=== PATIENT | male | born 1955 | race American Indian/Alaskan Native ===

== ENCOUNTER 2016-06-21 13:17 | Emergency (ER) | payer OTHER ==
[2016-06-21 14:35] LABS: Basophils % (Auto) 1.1 % (0.0-1.8); Eosinophils % (Auto) 3.3 % (0.0-4.3); Hematocrit 41.3 % (35.5-45.6); Hemoglobin 13.2 gm/dl (11.8-15.2); Mean Corpuscular HGB Conc 32 % (32-34); Mean Corpuscular Volume 70 fl (84-94); Platelet Count 165 K/mm3 (140-440); Red Blood Count 5.87 M/mm3 (3.65-5.03); Red Cell Distribution Width 14.8 % (13.2-15.2); White Blood Count 3.4 K/mm3 (4.5-11.0)
[2016-06-21 14:39] LABS: Mean Corpuscular Hemoglobin 22 pg (28-32)
[2016-06-21 14:47] LABS: Anion Gap 18 mmol/L; BUN/Creatinine Ratio 21.11; Blood Urea Nitrogen 19 mg/dL (9-20); Calcium 9.1 mg/dL (8.4-10.2); Carbon Dioxide 24 mmol/L (22-30); Chloride 102.4 mmol/L (98-107); Glucose 102 mg/dL (75-100); Potassium 4.1 mmol/L (3.6-5.0); Sodium 140 mmol/L (137-145)
[2016-06-21] MEDS ORDERED: LIDOCAINE VISCOUS 2% PO ONE (21:05)
[2016-06-21] MEDS ORDERED: ALUM-MAG HYDROX-SIMETH 200-200-20MG/5ML PO ONE (21:05)
--- NOTE | 2016-06-21 21:34 | Emergency Department Report ---
ED Chest Pain HPI - General Chief Complaint: Chest Pain Stated Complaint: CHEST PAIN /SOB/WEAKNESS Time Seen by Provider: 06/21/16 20:53 Source: patient, old records reviewed Mode of arrival: Ambulatory Limitations: No Limitations - History of Present Illness Initial Comments: 61-year-old male with a past medical history hypertension, and elevated cholesterol presents to the hospital complaints of chest pressure intermittent for the past 3-4 weeks. Patient states the pain is upper portion of his anterior chest and is intermittent. No aggravating or alleviating factors. Symptoms rated as 6/10 in intensity. Patient states he has had cough productive of yellow sputum and sneezing for last several weeks and suspects he has an infection. He will attempted to be seen at [facility] but left after not being seen for 3-4 hours. Patient having subjective fevers at nighttime. Patient denies significant shortness of breath, nausea, vomiting, diaphoresis, fever, or calf tenderness. Patient also states that the pain started in his abdomen feels more like gas he belches on occasion which helps alleviate some of his chest pressure. Patient also states she typically eats close to bedtime and symptoms are worse at night while lying down. Previous medical record reviewed. Patient had a negative stress test at that time. He states his blood pressure spiked deficit [id number] medications prior to that admission. Severity scale (0 -10): 0 - Related Data Home Medications Medication Instructions Recorded Confirmed Last Taken Losartan [Cozaar] 50 mg PO QDAY 05/04/15 05/04/15 05/03/15 yes Previous Rx's Medication Instructions Recorded Last Taken Type Famotidine [Pepcid] 20 mg PO BID #60 tablet 06/21/16 Unknown Rx Mag Hydrox/Al Hydrox/Simeth 20 ml PO QID PRN #1 bottle 06/21/16 Unknown Rx [Maalox Advanced Suspension] Allergies Allergy/AdvReac Type Severity Reaction Status Date / Time codeine Allergy Unknown Verified 05/04/15 00:32 KARLA score - Karla Score Age > 65: (0) No Aspirin use within the Past 7 Days: (0) No 3 or more CAD Risk Factors: (1) Yes 2 or more Angina events in past 24 hrs: (1) Yes Known CAD with more than 50% Stenosis: (0) No Elevated Cardiac Markers: (0) No ST Deviation Greater than 0.5mm: (0) No KARLA Score: 2 ED Review of Systems ROS: Stated complaint: CHEST PAIN /SOB/WEAKNESS Other details as noted in HPI Comment: All other systems reviewed and negative Other: Constitutional: No fevers chills Eyes: No eye pain visual changes ENT: No ear pain or throat pain Neck: Denies pain Respiratory: As per HPI Cardiovascular: As per HPI GI: Denies abdominal pain, nausea, vomiting, diarrhea : Denies dysuria Musculoskeletal: Denies back pain, joint swelling Skin: Denies rash, lesions, erythema Neurologic: Denies headache, numbness, weakness Psychiatric: Denies suicidal ideation, hallucinations ED Past Medical Hx - Past Medical History Previous Medical History?: Yes Hx Hypertension: Yes Additional medical history: High Cholesterol - Surgical History Past Surgical History?: Yes Additional Surgical History: Kidney stones - Social History Smoking Status: Never Smoker Substance Use Type: None - Medications Home Medications: Home Medications Medication Instructions Recorded Confirmed Last Taken Type Losartan [Cozaar] 50 mg PO QDAY 05/04/15 05/04/15 05/03/15 History yes Famotidine [Pepcid] 20 mg PO BID #60 tablet 06/21/16 Unknown Rx Mag Hydrox/Al Hydrox/Simeth 20 ml PO QID PRN #1 bottle 06/21/16 Unknown Rx [Maalox Advanced Suspension] ED Physical Exam - General Limitations: No Limitations - Other Other exam information: General: No limitations, patient is alert in no acute distress Head exam: Atraumatic, normocephalic Eyes exam: Normal appearance ENT: Moist mucous membrane, normal oropharynx Neck exam: Normal inspection, full range of motion, no meningismus nontender Respiratory exam: Clear to auscultation bilateral, no wheezes, rales, crackles Cardiovascular: Normal rate and rhythm, normal heart sounds Abdomen: Soft, nondistended, and nontender, with normal bowel sounds, no rebound, or guarding Extremity: Full range of motion normal inspection no deformity, no calf tenderness or edema Back: Normal Inspection, full range of motion, no tenderness Neurologic: Alert, oriented x3, cranial nerves intact, no motor or sensory deficit Psychiatric: normal affect, normal mood Skin: Warm, dry, intact ED Course Vital Signs 06/21/16 06/21/16 06/21/16 13:34 20:02 20:20 Temperature 97.8 F 98.8 F Pulse Rate 83 85 Respiratory 18 24 Rate Blood Pressure 151/91 Blood Pressure 132/75 [Right] O2 Sat by Pulse 100 100 99 Oximetry - Reevaluation(s) Reevaluation #1: 06/21/16 21:34 Maalox and viscous lidocaine provided 06/21/16 21:34 06/21/16 21:58 Patient reports complete relief in symptoms after taking Maalox and viscous lidocaine ED Medical Decision Making - Lab Data Result diagrams: 06/21/16 14:11 06/21/16 14:11 Lab Results 06/21/16 06/21/16 06/21/16 Range/Units 14:11 14:11 16:34 WBC 3.4 L (4.5-11.0) K/mm3 RBC 5.87 H (3.65-5.03) M/mm3 Hgb 13.2 (11.8-15.2) gm/dl Hct 41.3 (35.5-45.6) % MCV 70 L (84-94) fl MCH 22 L (28-32) pg MCHC 32 (32-34) % RDW 14.8 (13.2-15.2) % Plt Count 165 (140-440) K/mm3 Lymph % (Auto) 37.2 H (13.4-35.0) % Mason % (Auto) 13.2 H (0.0-7.3) % Eos % (Auto) 3.3 (0.0-4.3) % Baso % (Auto) 1.1 (0.0-1.8) % Lymph # 1.3 (1.2-5.4) K/mm3 Mason # 0.5 (0.0-0.8) K/mm3 Eos # 0.1 (0.0-0.4) K/mm3 Baso # 0.0 (0.0-0.1) K/mm3 Seg Neutrophils % 45.2 (40.0-70.0) % Seg Neutrophils # 1.6 L (1.8-7.7) K/mm3 Carbon Dioxide 24 (22-30) mmol/L BUN 19 (9-20) mg/dL Creatinine 0.9 (0.8-1.5) mg/dL Estimated GFR > 60 ml/min BUN/Creatinine Ratio 21.11 % Glucose 102 H (75-100) mg/dL Calcium 9.1 (8.4-10.2) mg/dL Troponin T < 0.010 < 0.010 (0.00-0.029) ng/mL 06/21/16 Range/Units 19:44 WBC (4.5-11.0) K/mm3 RBC (3.65-5.03) M/mm3 Hgb (11.8-15.2) gm/dl Hct (35.5-45.6) % MCV (84-94) fl MCH (28-32) pg MCHC (32-34) % RDW (13.2-15.2) % Plt Count (140-440) K/mm3 Lymph % (Auto) (13.4-35.0) % Mason % (Auto) (0.0-7.3) % Eos % (Auto) (0.0-4.3) % Baso % (Auto) (0.0-1.8) % Lymph # (1.2-5.4) K/mm3 Mason # (0.0-0.8) K/mm3 Eos # (0.0-0.4) K/mm3 Baso # (0.0-0.1) K/mm3 Seg Neutrophils % (40.0-70.0) % Seg Neutrophils # (1.8-7.7) K/mm3 Carbon Dioxide (22-30) mmol/L BUN (9-20) mg/dL Creatinine (0.8-1.5) mg/dL Estimated GFR ml/min BUN/Creatinine Ratio % Glucose (75-100) mg/dL Calcium (8.4-10.2) mg/dL Troponin T < 0.010 (0.00-0.029) ng/mL Sodium 140, potassium 4.1, chloride 102.4, anion gap 18 - EKG Data -: EKG Interpreted by Me (normal sinus rhythm rate 76) - EKG Data When compared to previous EKG there are: no significant change (compared to ) - Radiology Data Radiology results: image reviewed (chest x-ray PA and lateral: No acute finding) - Medical Decision Making I suspect the patient's symptoms are secondary to GERD. She started with epigastric burning discomfort that then radiated to her upper chest with associated belching. Patient also has bad eating habits and eats heavy meals prior to going to bed. Patient was consulted about taken small frequent meals and not eating close to bedtime. He'll be started on a H2 tana and Maalox. Patient had a negative stress test last year or 2015 and has had 3 sets never cardiac enzymes with a normal EKG today - Differential Diagnosis bronchitis, pneumonia, AK, unstable angina, GERD Critical Care Time: No Critical care attestation.: If time is entered above; I have spent that time in minutes in the direct care of this critically ill patient, excluding procedure time. ED Disposition Clinical Impression: GERD (gastroesophageal reflux disease) Disposition: DISCHARGED TO HOME OR SELFCARE Is pt being admited?: No Does the pt Need Aspirin: No Condition: Stable Instructions: Gastroesophageal Reflux Disease (ED) Additional Instructions: Take medication as prescribed. Return if symptoms worsen. Follow-up with your doctor for further workup and evaluation. Prescriptions: Famotidine [Pepcid] 20 mg PO BID #60 tablet Mag Hydrox/Al Hydrox/Simeth [Maalox Advanced Suspension] 20 ml PO QID PRN #1 bottle PRN Reason: Indigestion Referrals: PRIMARY CARE, [Primary Care Provider] - 3-5 Days Time of Disposition: 22:03
[2016-06-21 22:08] VITALS: BP 127/80
--- NOTE | 2016-06-22 07:46 | XRay Report ---
Chest 2 views: History: Chest pain, cough. Findings: Normal cardiomediastinal silhouette. Trachea is midline. No consolidation, pneumothorax or pleural effusion. Impression: No acute cardiopulmonary findings.
== END 2016-06-21 22:10 | disposition home or self-care (01) ==
LOC: ED 13:17
DX: K21.9 Gastro-esophageal reflux disease without esophagitis (principal); I10 Essential (primary) hypertension; E78.00 Pure hypercholesterolemia, unspecified; Z88.6 Allergy status to analgesic agent
CPT/HCPCS: 36415; 71020; 80048; 84484; 85025; 93005; 93010; 99285

== ENCOUNTER 2017-03-06 03:36 | Inpatient (IN) | payer OTHER ==
[2017-03-06 08:07] LABS: Eosinophils % (Auto) 3.9 % (0.0-4.3); Hematocrit 41.8 % (35.5-45.6); Mean Corpuscular HGB Conc 31 % (32-34); Mean Corpuscular Volume 72 fl (84-94); Platelet Count 183 K/mm3 (140-440); Red Blood Count 5.77 M/mm3 (3.65-5.03); Red Cell Distribution Width 14.9 % (13.2-15.2); White Blood Count 4.8 K/mm3 (4.5-11.0)
[2017-03-06 08:12] LABS: Anion Gap 17 mmol/L; BUN/Creatinine Ratio 21; Blood Urea Nitrogen 19 mg/dL (9-20); Calcium 8.9 mg/dL (8.4-10.2); Carbon Dioxide 25 mmol/L (22-30); Chloride 100.9 mmol/L (98-107); Glucose 98 mg/dL (75-100); Potassium 4.4 mmol/L (3.6-5.0); Sodium 138 mmol/L (137-145)
[2017-03-06 08:21] LABS: Mean Corpuscular Hemoglobin 23 pg (28-32)
--- NOTE | 2017-03-06 14:18 | Emergency Department Report ---
ED Chest Pain HPI - General Chief Complaint: Chest Pain Stated Complaint: CHEST PRESSURE Time Seen by Provider: 03/06/17 13:24 Source: patient Mode of arrival: Ambulatory Limitations: No Limitations - History of Present Illness Initial Comments: The patient is a 61-year-old male with multiple cardiac risk factors. He thinks he has had a cardiac catheterization more than 5 years ago. He was here and 2016. A stress test showed "an exaggerated blood pressure response" but no reversible changes consistent with ischemia. Patient states that he has never followed up with [facility] since his workup in the office. He denies any associated symptoms. He states the pain is now gone. He states it lasted for a few hours and was associated with some posterior chest heaviness as well. This is why he decided to come to the emergency department for evaluation. MD Complaint: chest pain -: Gradual Onset: during rest Pain Location: substernal, left chest Pain Radiation: back (involved the back thoracic region subscapular today) Severity: moderate Severity scale (0 -10): 0 Quality: pressure Consistency: constant, now resolved Improves With: nothing Worsens With: nothing re: denies: nausea, vomting, diaphoresis, dyspnea, sense of impending doom Other Symptoms: denies: cough, fever, syncope Treatments Prior to Arrival: none Aspirin use within the Past 7 Days: (1) Yes - Related Data Home Medications Medication Instructions Recorded Confirmed Last Taken Losartan [Cozaar] 50 mg PO QDAY 05/04/15 05/04/15 05/03/15 yes Previous Rx's Medication Instructions Recorded Last Taken Type Famotidine [Pepcid] 20 mg PO BID #60 tablet 06/21/16 Unknown Rx Mag Hydrox/Aluminum Hyd/Simeth 20 ml PO QID PRN #1 bottle 06/21/16 Unknown Rx [Maalox Advanced Suspension] Allergies Allergy/AdvReac Type Severity Reaction Status Date / Time codeine Allergy Unknown Verified 05/04/15 00:32 Heart Score - HEART Score History: Moderately suspicious EKG: Normal Age: 45-65 Risk factors: > 3 risk factors or hx of atherosclerotic disease Troponin: < normal limit HEART Score: 4 - Critical Actions Critical Actions: 4-6 pts:12-16.6% risk of adverse cardiac event. Should be admitted ED Review of Systems ROS: Stated complaint: CHEST PRESSURE Other details as noted in HPI Constitutional: denies: chills, fever Eyes: denies: eye pain, eye discharge, vision change ENT: denies: ear pain, throat pain Respiratory: denies: cough, shortness of breath, wheezing Cardiovascular: chest pain. denies: palpitations Endocrine: no symptoms reported Gastrointestinal: denies: abdominal pain, nausea, diarrhea Genitourinary: denies: urgency, dysuria Musculoskeletal: back pain. denies: joint swelling, arthralgia Skin: denies: rash, lesions Neurological: denies: headache, weakness, paresthesias Psychiatric: denies: anxiety, depression Hematological/Lymphatic: denies: easy bleeding, easy bruising ED Past Medical Hx - Past Medical History Hx Hypertension: Yes Additional medical history: High Cholesterol - Surgical History Additional Surgical History: Kidney stones - Social History Smoking Status: Never Smoker Substance Use Type: None - Medications Home Medications: Home Medications Medication Instructions Recorded Confirmed Last Taken Type Losartan [Cozaar] 50 mg PO QDAY 05/04/15 05/04/15 05/03/15 History yes Famotidine [Pepcid] 20 mg PO BID #60 tablet 06/21/16 Unknown Rx Mag Hydrox/Aluminum Hyd/Simeth 20 ml PO QID PRN #1 bottle 06/21/16 Unknown Rx [Maalox Advanced Suspension] ED Physical Exam - General Limitations: No Limitations General appearance: alert, in no apparent distress - Head Head exam: Present: atraumatic, normocephalic - Eye Eye exam: Present: normal appearance, PERRL, EOMI. Absent: scleral icterus - ENT ENT exam: Present: mucous membranes moist - Neck Neck exam: Present: normal inspection. Absent: tenderness, meningismus - Respiratory Respiratory exam: Present: normal lung sounds bilaterally. Absent: respiratory distress - Cardiovascular Cardiovascular Exam: Present: regular rate, normal rhythm. Absent: systolic murmur, diastolic murmur, rubs, gallop - GI/Abdominal GI/Abdominal exam: Present: soft, normal bowel sounds. Absent: distended, tenderness, guarding, rebound, rigid - Rectal Rectal exam: Present: deferred - Extremities Exam Extremities exam: Present: normal inspection - Back Exam Back exam: Present: normal inspection - Neurological Exam Neurological exam: Present: alert, oriented X3, CN II-XII intact. Absent: motor sensory deficit - Psychiatric Psychiatric exam: Present: normal affect, normal mood - Skin Skin exam: Present: warm, dry, intact, normal color. Absent: rash ED Course Vital Signs 03/06/17 03/06/17 03/06/17 03:45 03:48 07:20 Temperature 98.8 F 98.8 F 97.4 F L Pulse Rate 82 76 68 Respiratory 18 18 18 Rate Blood Pressure 148/84 148/84 Blood Pressure [Left] Blood Pressure 129/79 [Right] O2 Sat by Pulse 99 99 99 Oximetry 03/06/17 03/06/17 03/06/17 07:52 08:00 08:01 Temperature 98.6 F Pulse Rate 64 Respiratory 14 13 15 Rate Blood Pressure 143/84 Blood Pressure 147/86 [Left] Blood Pressure [Right] O2 Sat by Pulse 100 100 100 Oximetry 03/06/17 03/06/17 03/06/17 08:30 09:00 09:30 Temperature Pulse Rate Respiratory 18 18 13 Rate Blood Pressure 128/78 118/82 117/71 Blood Pressure [Left] Blood Pressure [Right] O2 Sat by Pulse 100 100 99 Oximetry 03/06/17 03/06/17 03/06/17 10:00 10:33 11:00 Temperature Pulse Rate 80 73 Respiratory 12 14 13 Rate Blood Pressure 129/80 129/80 126/78 Blood Pressure [Left] Blood Pressure [Right] O2 Sat by Pulse 100 100 Oximetry 03/06/17 12:00 Temperature Pulse Rate 72 Respiratory 14 Rate Blood Pressure 126/73 Blood Pressure [Left] Blood Pressure [Right] O2 Sat by Pulse 100 Oximetry - Reevaluation(s) Reevaluation #1: The patient was admitted by Dr. Collado to the hospitalist service in stable condition. I will check a chest x-ray. 03/06/17 15:27 KARLA score - Karla Score Age > 65: (0) No Aspirin use within the Past 7 Days: (0) No 3 or more CAD Risk Factors: (1) Yes 2 or more Angina events in past 24 hrs: (1) Yes Known CAD with more than 50% Stenosis: (0) No Elevated Cardiac Markers: (0) No ST Deviation Greater than 0.5mm: (0) No KARLA Score: 2 ED Medical Decision Making - Lab Data Result diagrams: 03/06/17 07:34 03/06/17 07:34 Laboratory Results - last 24 hr 03/06/17 03/06/1703/06/17 07:34 07:34 10:38 WBC 4.8 RBC 5.77 H Hgb 13.0 Hct 41.8 MCV 72 L MCH 23 L MCHC 31 L RDW 14.9 Plt Count 183 Lymph % (Auto) 46.1 H Terrell % (Auto) 10.2 H Eos % (Auto) 3.9 Baso % (Auto) 1.0 Lymph # 2.2 Terrell # 0.5 Eos # 0.2 Baso # 0.0 Seg Neutrophils % 38.8 L Seg Neutrophils # 1.9 Sodium 138 Potassium 4.4 Chloride 100.9 Carbon Dioxide 25 Anion Gap 17 BUN 19 Creatinine 0.9 Estimated GFR > 60 BUN/Creatinine Ratio 21 Glucose 98 Calcium 8.9 Troponin T < 0.010 < 0.010 - EKG Data -: EKG Interpreted by Me EKG shows normal: sinus rhythm, axis, intervals, QRS complexes, ST-T waves Rate: bradycardia (borderline) - EKG Data Interpretation: no acute changes Critical care attestation.: If time is entered above; I have spent that time in minutes in the direct care of this critically ill patient, excluding procedure time. ED Disposition Clinical Impression: Chest pain Disposition: [id number] OP ADMIT IP TO THIS HOSP Is pt being admited?: Yes Does the pt Need Aspirin: Yes Condition: Stable Time of Disposition: 15:28
--- NOTE | 2017-03-06 14:37 | History and Physical Report ---
History of Present Illness Chief complaint: My chest feels tight History of present illness: 61 YO Male with HTN, HLD, Nephrolithiasis presents to ED for evaluation. Pt states that he has experienced tightness in his chest, and chest pain for the past 2 weeks with worsening symptoms over the past 6 hours. Pt states that his pain was 4-6/10, intermittent, substernal, radiated to his back, not worsened with exertion or relieved with rest. Pt acknowledges nonproductive cough for the past week. Pt denies fever, chills, palpitations, NVD, Syncope, BRBPR, Hemoptysis, Prolonged travel/immobililty, Trauma, individual/family history of DVT/PE, unintentional weight loss, night sweats, bone pain, or recent ill contacts. Pt seen and evaluated in ED and found to have symptoms consistent with ACS. Pt treated with supplemental oxygen, aspirin, nitro, and morphine for pain. Past History Past Medical History: hypertension, hyperlipidemia, other (Nephrolithiasis) Past Surgical History: Other (Cardiac Cath) Social history: . denies: smoking, alcohol abuse, prescription drug abuse Family history: hypertension Medications and Allergies Allergies Allergy/AdvReac Type Severity Reaction Status Date / Time codeine Allergy Unknown Verified 05/04/15 00:32 Home Medications Medication Instructions Recorded Confirmed Last Taken Type Losartan [Cozaar] 50 mg PO QDAY 05/04/15 03/06/17 03/05/17 History Garlic 1,000 mg PO DAILY 03/06/17 03/06/17 03/05/17 History Multivitamin [Multiple Vitamins] 1 each PO DAILY 03/06/17 03/06/17 03/05/17 History [place]-3 Fatty Acids/Fish Oil [Fish 1 each PO DAILY 03/06/17 03/06/17 03/05/17 History Oil] Review of Systems Constitutional: no weight loss, no weight gain, no fever, no chills, no sweats Ears, nose, mouth and throat: no ear pain, no ear discharge, no tinnitis, no decreased hearing, no nose pain, no nasal congestion, no nasal discharge Cardiovascular: chest pain, no orthopnea, no palpitations, no rapid/irregular heart beat, no edema, no syncope, no lightheadedness Respiratory: cough, no cough with sputum, no excessive sputum Gastrointestinal: no abdominal pain, no nausea, no vomiting, no diarrhea, no constipation Genitourinary Male: no hematuria, no flank pain, no discharge, no urinary frequency, no urinary hesitancy, no nocturia Rectal: no pain, no incontinence, no bleeding Musculoskeletal: no neck stiffness, no neck pain, no shooting arm pain, no arm numbness/tingling, no low back pain, no shooting leg pain Integumentary: no rash, no pruritis, no redness, no sores, no wounds, no jaundice Neurological: no head injury, no transient paralysis, no paralysis, no weakness , no parathesias, no numbness, no tingling, no seizures, no syncope Psychiatric: no anxiety, no memory loss, no change in sleep habits, no sleep disturbances, no insomnia, no hypersomnia, no change in appetite Endocrine: no cold intolerance, no heat intolerance, no polyphagia, no excessive thirst, no polydipsia, no polyuria, no nocturia Hematologic/Lymphatic: no easy bruising, no easy bleeding Allergic/Immunologic: no urticaria, no allergic rhinitis, no wheezing Exam - Constitutional Vitals: Temp Pulse Resp BP Pulse Ox 98.6 F 72 14 126/73 100 03/06/17 08:01 03/06/17 12:00 03/06/17 12:00 03/06/17 12:00 03/06/17 12:00 General appearance: Present: mild distress - EENT Eyes: Present: PERRL ENT: hearing intact, clear oral mucosa - Neck Neck: Present: supple, normal ROM - Respiratory Respiratory effort: normal Respiratory: bilateral: CTA - Cardiovascular Heart Sounds: Present: S1 & S2. Absent: rub, click - Extremities Extremities: pulses symmetrical, No edema Peripheral Pulses: within normal limits - Abdominal General gastrointestinal: Present: soft, non-tender, non-distended, normal bowel sounds Male genitourinary: Present: normal - Integumentary Integumentary: Present: clear, warm, dry - Musculoskeletal Musculoskeletal: gait normal, strength equal bilaterally - Psychiatric Psychiatric: appropriate mood/affect, intact judgment & insight - Neurologic Neurologic: CNII-XII intact, moves all extremities Results - Labs CBC & Chem 7: 03/06/17 07:34 03/06/17 07:34 Labs: Abnormal lab results 03/06/17 Range/Units 07:34 RBC 5.77 H (3.65-5.03) M/mm3 MCV 72 L (84-94) fl MCH 23 L (28-32) pg MCHC 31 L (32-34) % Lymph % (Auto) 46.1 H (13.4-35.0) % Cochran % (Auto) 10.2 H (0.0-7.3) % Seg Neutrophils % 38.8 L (40.0-70.0) % Assessment and Plan - Patient Problems (1) ACS (acute coronary syndrome) Current Visit: Yes Status: Acute Plan to address problem: Chest Pain protocol: Serial cardiac enzymes, EKG, Telemetry, Echo, Stre (2) HTN (hypertension) Current Visit: Yes Status: Acute Plan to address problem: Monitor BP q shift, continue medical management (3) HLD (hyperlipidemia) Current Visit: Yes Status: Acute Qualifiers: Hyperlipidemia type: mixed hyperlipidemia Qualified Code(s): E78.2 - Mixed hyperlipidemia Plan to address problem: low cholesterol diet, lipid panel. (4) DVT prophylaxis Current Visit: Yes Status: Acute
[2017-03-06] MEDS ORDERED: ZOFRAN IV PRN (14:42)
[2017-03-06] MEDS ORDERED: MORPHINE IV PRN (14:42)
[2017-03-06] MEDS ORDERED: PROVENTIL IH PRN (14:42)
[2017-03-06] MEDS ORDERED: TYLENOL PO PRN (14:42)
[2017-03-06] MEDS ORDERED: DULCOLAX PR PRN (14:42)
[2017-03-06] MEDS ORDERED: NITROSTAT SL PRN (14:42)
[2017-03-06] MEDS ORDERED: SODIUM CHLORIDE FLUSH SYRINGE 10 ML IV PRN (14:42)
[2017-03-06] MEDS ORDERED: BABY ASPIRIN PO STA (14:42)
[2017-03-06] MEDS ORDERED: MILK OF MAGNESIA PO PRN (14:42)
--- NOTE | 2017-03-06 15:35 | XRay Report ---
AP chest x-ray. Findings: The heart and lungs reveal no acute or significant abnormalities.
[2017-03-06] MEDS: PEPCID PO SCH (21:00)
[2017-03-07] MEDS ORDERED: LEXISCAN IV ONE (09:42)
[2017-03-07] MEDS ORDERED: COZAAR PO SCH (10:00)
--- NOTE | 2017-03-07 11:34 | Discharge Summary ---
Providers - Providers Date of Admission: 03/06/17 14:42 Attending physician: SANYA VILLANUEVA MD 03/06/17 Consult to Cardiac Rehabilitation [CONS] Routine Reason For Exam: Phase I 03/06/17 14:47 Consult to Physician [CONS] Routine Consulting Provider: ANJELICA IBARRA Reason For Exam: acs Place consult to:: Dr. Ibarra Notified:: Lisa DEE Phone number called:: Was contact made?: Yes If yes, spoke with:: Erica-answering service Time called:: 08:12 Primary care physician: [facility] [employer] Hospitalization Reason for admission: chest pain Condition: Stable Hospital course: 61 YO Male with HTN, HLD, Nephrolithiasis presents to ED for evaluation. Pt states that he has experienced tightness in his chest, and chest pain for the past 2 weeks with worsening symptoms over the past 6 hours. Pt states that his pain was 4-6/10, intermittent, substernal, radiated to his back, not worsened with exertion or relieved with rest. Pt acknowledges nonproductive cough for the past week. Pt denies fever, chills, palpitations, NVD, Syncope, BRBPR, Hemoptysis, Prolonged travel/immobililty, Trauma, individual/family history of DVT/PE, unintentional weight loss, night sweats, bone pain, or recent ill contacts. Pt seen and evaluated in ED and found to have symptoms consistent with ACS. Pt treated with supplemental oxygen, aspirin, nitro, and morphine for pain. patient proceeded to have a stress test that was negative. Patients blood pressure improved follow restarting of BP meds. (1) Atypical Chest pain- costochondiritis (2) HTN (hypertension) urgency (3) HLD (hyperlipidemia) Disposition: DC- TO HOME OR SELFCARE Time spent for discharge: 35 MINS Core Measure Documentation - Palliative Care Palliative Care/ Comfort Measures: Not Applicable - Core Measures Any of the following diagnoses?: none - VTE Discharge Requirements Deep Vein Thrombosis/Pulmonary Embolism Present on Admission: No Exam - Physical Exam Narrative exam: General appearance: Present: mild distress - EENT Eyes: Present: PERRL ENT: hearing intact, clear oral mucosa - Neck Neck: Present: supple, normal ROM - Respiratory Respiratory effort: normal Respiratory: bilateral: CTA - Cardiovascular Heart Sounds: Present: S1 & S2. Absent: rub, click - Extremities Extremities: pulses symmetrical, No edema Peripheral Pulses: within normal limits - Abdominal General gastrointestinal: Present: soft, non-tender, non-distended, normal bowel sounds Male genitourinary: Present: normal - Integumentary Integumentary: Present: clear, warm, dry - Musculoskeletal Musculoskeletal: gait normal, strength equal bilaterally - Psychiatric Psychiatric: appropriate mood/affect, intact judgment & insight - Neurologic Neurologic: CNII-XII intact, moves all extremity - Constitutional Vitals: Temp Pulse Resp BP Pulse Ox 97.9 F 80 18 119/70 98 03/07/17 07:03 03/07/17 07:50 03/07/17 07:03 03/07/17 07:03 03/07/17 05:38 General appearance: Present: no acute distress Plan Activity: advance as tolerated, fall precautions Diet: low salt Special Instructions: record daily BP diary Follow up with: PRIMARY CAREMD [Primary Care Provider] - 3-5 Days ANJELICA IBARRA MD [Staff Physician] - 7 Days
--- NOTE | 2017-03-07 12:12 | Consultation ---
History of Present Illness Consult date: 03/07/17 Requesting physician: MAYRA CARRENO Consult reason: chest pain History of present illness: While at work yesterday, the patient developed recurrent substernal chest pressure radiating to his back. Due to persistence of symptoms, he presented to the hospital. After ruling out for AMI, he underwent a pharmacologic stress test with nuclear imaging this morning. His stress test was negative for ischemia. Past History Past Medical History: hypertension, hyperlipidemia, other (nephrolithiasis) Past Surgical History: bowel surgery, Other (laser procedure for nephrolithiasis ) Social history: . denies: smoking, alcohol abuse Family history: denies: CAD Medications and Allergies Allergies Allergy/AdvReac Type Severity Reaction Status Date / Time codeine Allergy Unknown Verified 05/04/15 00:32 Home Medications Medication Instructions Recorded Confirmed Last Taken Type Losartan [Cozaar] 50 mg PO QDAY 05/04/15 03/06/17 03/05/17 History Garlic 1,000 mg PO DAILY 03/06/17 03/06/17 03/05/17 History Multivitamin [Multiple Vitamins] 1 each PO DAILY 03/06/17 03/06/17 03/05/17 History [place]-3 Fatty Acids/Fish Oil [Fish 1 each PO DAILY 03/06/17 03/06/17 03/05/17 History Oil] Active Meds: Active Medications Acetaminophen (Tylenol) 650 mg PO Q4H PRN PRN Reason: Pain MILD(1-3)/Fever >100.5/DRAKE Albuterol (Proventil) 2.5 mg IH Q4HRT PRN PRN Reason: Shortness Of Breath Bisacodyl (Dulcolax) 10 mg MS QDAY PRN PRN Reason: Constipation unrelieved by MOM Famotidine (Pepcid) 10 mg PO BID [facility] Last Admin: 03/06/17 21:00 Dose: 10 mg Losartan Potassium (Cozaar) 50 mg PO QDAY [facility] Magnesium Hydroxide (Milk Of Magnesia) 30 ml PO Q4H PRN PRN Reason: Constipation Morphine Sulfate (Morphine) 2 mg IV Q4H PRN PRN Reason: Pain, Moderate (4-6) Nitroglycerin (Nitrostat) 0.4 mg SL Q5M PRN PRN Reason: Chest Pain Ondansetron HCl (Zofran) 4 mg IV Q8H PRN PRN Reason: N/V unrelieved by Reglan Sodium Chloride (Sodium Chloride Flush Syringe 10 Ml) 10 ml IV PRN PRN PRN Reason: LINE FLUSH Review of Systems Constitutional: no fever, no chills Ears, nose, mouth and throat: no ear pain, no ear discharge, no sore throat Cardiovascular: chest pain, no palpitations, no lightheadedness Respiratory: no cough, no hemoptysis, no shortness of breath Gastrointestinal: no abdominal pain, no nausea, no vomiting, no diarrhea, no constipation Genitourinary Male: no dysuria, no hematuria, no urinary frequency Rectal: no pain, no bleeding Musculoskeletal: no neck stiffness, no neck pain, no myalgias Integumentary: no rash, no pruritis Neurological: no paralysis, no weakness, no parathesias, no numbness Endocrine: no cold intolerance, no heat intolerance Hematologic/Lymphatic: no easy bruising, no easy bleeding Allergic/Immunologic: no urticaria, no wheezing Physical Examination Vital Signs Last Vital Signs Temp 97.9 F 03/07/17 07:03 Pulse 80 03/07/17 07:50 Resp 18 03/07/17 07:03 BP 119/70 03/07/17 07:03 Pulse Ox 98 03/07/17 05:38 General appearance: no acute distress HEENT: Positive: EOMI, Normocephaly, Mucus Membranes Moist Neck: Positive: neck supple, trachea midline Cardiac: Positive: Reg Rate and Rhythm, S1/S2 Lungs: Positive: clear to auscultation Neuro: Positive: Grossly Intact Abdomen: Positive: Soft, Active Bowel Sounds. Negative: Tender Skin: Positive: Clear. Negative: Rash Musculoskeletal: Normal Range of Motion Extremities: Present: normal. Absent: edema Results 03/06/17 07:34 03/06/17 07:34 - Imaging and Cardiology EKG: image reviewed EKG interpretations - Telemetry EKG Rhythm: Sinus Rhythm Assessment and Plan Stable cardiac status. The patient may be discharged home from a cardiac standpoint. He should f/u at my office in 1-2 weeks. - Patient Problems (1) Chest pain Current Visit: Yes Status: Acute (2) HTN (hypertension) Current Visit: Yes Status: Chronic Qualifiers: Hypertension type: essential hypertension Qualified Code(s): I10 - Essential (primary) hypertension (3) HLD (hyperlipidemia) Current Visit: Yes Status: Chronic Qualifiers: Hyperlipidemia type: mixed hyperlipidemia Qualified Code(s): E78.2 - Mixed hyperlipidemia
[2017-03-07 13:41] VITALS: BP 164/100
[2017-03-07] MEDS: PEPCID PO SCH (14:00)
--- NOTE | 2017-03-08 01:31 | Treadmill Report ---
REASON FOR STUDY: Chest pain. STRESS TEST PROTOCOL: The patient received 0.4 of Lexiscan intravenously over 10 seconds. Tetrofosmin was subsequently injected. Baseline EKG, normal sinus rhythm. Lexiscan EKG, no diagnostic ischemic changes. No chest pain. No arrhythmias. IMPRESSION: Electrocardiographically negative stress test. Nuclear imaging report to follow. JOB# [id number] [facility]/NTS
--- NOTE | 2017-03-08 02:38 | Treadmill Report ---
THALLIUM REPORT REASON FOR STUDY: Chest pain. IMAGING PROTOCOL: The patient received technetium-99 Tetrofosmin for rest and stress imaging. Imaging for all procedures was completed 30-90 minutes following the initial injection of Technetium 99m Tetrofosmin. SPECT imaging in the 180 degree arc was performed in the right anterior oblique projection. Computerized reconstruction of the images was performed for analysis. NUCLEAR IMAGING RESULTS: Technically limited study due to soft tissue attenuation artifact. Normal left ventricular cavity size with no change from stress to rest. Distribution of radionuclide within the left ventricle revealed a medium size area of photo-induction involving the inferior wall. The degree of photo-induction is moderate. Rest imaging does not show any significant improvement in this defect. Gated SPECT imaging revealed normal global LV systolic function with no significant wall motion abnormalities. The calculated left ventricular ejection fraction is 63%. IMPRESSION: Technically limited study. Medium sized fixed inferior wall defect. Normal global left ventricular systolic function with no significant wall motion abnormalities. Ejection fraction 63%. Although these findings suggest prior infarction in the right coronary artery territory, in the absence of significant wall motion abnormalities, the defect noted in this patient is probably artifactual. No evidence of significant stress-induced ischemia. [facility]# [id number] [facility]/STEVE THOMPSON
== END 2017-03-07 14:14 | disposition home or self-care (01) | DRG 206 ==
LOC: ED 03:36 → 4A 14:42
PROVIDERS: ADMIT Internal Medicine; ATTEND Internal Medicine
DX: M94.0 Chondrocostal junction syndrome [Tietze] (principal); E78.5 Hyperlipidemia, unspecified; I10 Essential (primary) hypertension; N20.0 Calculus of kidney; I16.0 Hypertensive urgency; Z88.5 Allergy status to narcotic agent; Z87.442 Personal history of urinary calculi; Z79.899 Other long term (current) drug therapy; Z82.49 Family history of ischemic heart disease and other diseases of the circulatory system
CPT/HCPCS: 36415; 71010; 78452; 80048; 82962; 84484; 85025; 85379; 93005; 93010; 93017; 93306; A9502; J2785

== ENCOUNTER 2017-09-09 19:51 | Emergency (ER) | payer OTHER ==
[2017-09-09] MEDS ORDERED: ASPIRIN PO ONE (20:44)
[2017-09-09 21:20] LABS: Basophils % (Auto) 1.1 % (0.0-1.8); Eosinophils # (Auto) 0.2 K/mm3 (0.0-0.4); Eosinophils % (Auto) 3.8 % (0.0-4.3); Hematocrit 44.6 % (35.5-45.6); Hemoglobin 13.9 gm/dl (11.8-15.2); Lymphocytes # (Auto) 1.5 K/mm3 (1.2-5.4); Lymphocytes % (Auto) 33.8 % (13.4-35.0); Mean Corpuscular HGB Conc 31 % (32-34); Mean Corpuscular Volume 71 fl (84-94); Monocytes # (Auto) 0.5 K/mm3 (0.0-0.8); Monocytes % (Auto) 12.2 % (0.0-7.3); Platelet Count 175 K/mm3 (140-440); Red Blood Count 6.25 M/mm3 (3.65-5.03); Red Cell Distribution Width 14.7 % (13.2-15.2)
[2017-09-09 21:23] LABS: Mean Corpuscular Hemoglobin 22 pg (28-32)
--- NOTE | 2017-09-09 21:25 | XRay Report ---
FINAL REPORT PROCEDURE: XR CHEST ROUTINE 2V TECHNIQUE: PA and lateral chest radiographs were obtained. CPT 83994 HISTORY: SOB Chest tightness COMPARISON: No prior studies are available for comparison. FINDINGS: Heart: Normal. Mediastinum/Vessels: Normal. Lungs/Pleural space: Normal. Bony thorax: No acute osseous abnormality. Other: IMPRESSION: Normal examination.
[2017-09-09 21:28] LABS: Partial Thromboplastin Time 29.2 Sec. (24.2-36.6)
[2017-09-09 21:33] LABS: BUN/Creatinine Ratio 15; Blood Urea Nitrogen 17 mg/dL (9-20); Calcium 9.5 mg/dL (8.4-10.2); Hemolysis Index 6
[2017-09-10] MEDS ORDERED: NACL 0.9% 1000 ML 1,000 ML IV ONE (01:22)
[2017-09-10 02:06] VITALS: BP 133/72
--- NOTE | 2017-09-10 02:53 | Emergency Department Report ---
HPI - General Chief Complaint: Chest Pain Time Seen by Provider: 09/10/17 00:07 - HPI HPI: The patient is a 62-year-old male who presents for evaluation of chest pain. The patient reports 5-6 days of on and off pressure-like epigastric abdominal pain and lower midsternal chest pain, mild in severity, exacerbated with eating. The patient denies fever, neck pain, parasthesias, dyspnea, cough, hemoptysis, palpitations, dizziness, syncope, unilateral leg swelling, calf muscle pain. Patient also denies cocaine or other stimulant use, history of DVT or PE, recent immobilization, or history of cancer. ED Past Medical Hx - Past Medical History Previous Medical History?: Yes Hx Hypertension: Yes Hx Congestive Heart Failure: No Hx Diabetes: No Hx GERD: Yes Hx Asthma: No Hx COPD: No Additional medical history: High Cholesterol - Surgical History Past Surgical History?: Yes Additional Surgical History: Kidney stones - Social History Smoking Status: Never Smoker Substance Use Type: None - Medications Home Medications: Home Medications Medication Instructions Recorded Confirmed Last Taken Type Losartan [Cozaar] 50 mg PO QDAY 05/04/15 03/06/17 03/05/17 History Garlic 1,000 mg PO DAILY 03/06/17 03/06/17 03/05/17 History Multivitamin [Multiple Vitamins] 1 each PO DAILY 03/06/17 03/06/17 03/05/17 History [place]-3 Fatty Acids/Fish Oil [Fish 1 each PO DAILY 03/06/17 03/06/17 03/05/17 History Oil] Cyclobenzaprine HCl [Flexeril 5 MG 5 mg PO Q8HR PRN #12 tab 09/10/17 Unknown Rx TAB] Famotidine [Pepcid] 20 mg PO BID #30 tablet 09/10/17 Unknown Rx Omeprazole Magnesium [PriLOSEC Otc] 20 mg PO QDAY #14 tablet. 09/10/17 Unknown Rx ED Review of Systems ROS: Stated complaint: CHEST PAIN Other details as noted in HPI Constitutional: denies: fever ENT: denies: throat or neck pain Respiratory: denies: cough, shortness of breath Cardiovascular: reports chest pain Endocrine: denies unexplained weight loss or gain Gastrointestinal: reports: abdominal pain, nausea Genitourinary: denies: dysuria Musculoskeletal: denies: leg swelling Skin: denies: rash Neurological: denies: headache Hematological/Lymphatic: denies: easy bleeding or easy bruising Psych: denies sadness or hopelessness Physical Exam - Physical Exam Vital Signs: Vital Signs 09/09/17 09/09/17 09/10/17 20:01 20:40 00:21 Temperature 98.2 F 98.2 F Pulse Rate 91 H 94 H 71 Respiratory 20 20 16 Rate Blood Pressure 142/85 142/85 Blood Pressure 156/89 [Right] O2 Sat by Pulse 98 98 97 Oximetry 09/10/17 09/10/17 09/10/17 00:22 00:55 02:05 Temperature Pulse Rate 64 58 L Respiratory 98 H 16 Rate Blood Pressure Blood Pressure 149/65 133/72 [Right] O2 Sat by Pulse 97 98 Oximetry Physical Exam: General: well-nourished, well-developed, no acute distress Head: Normocephalic, atraumatic Eyes: normal sclera ENT: Mucous membranes are pale and dry Neck: No neck stiffness, no cervical adenopathy Respiratory: Breath sounds equal bilaterally, no wheezing, rales, or rhonchi Cardio: S1 and S2 present, no murmurs, rubs, gallops, capillary refill is delayed Abdomen: Normoactive bowel sounds, soft abdomen, no rigidity, no guarding or rebound tenderness Chest WALL/Back: No tenderness to palpation of the chest wall, no CVA tenderness with percussion Musc: No pitting edema Skin: No rash Neuro: no facial drooping, normal speech Psych: Normal affect ED Course Vital Signs 09/09/17 09/09/17 09/10/17 20:01 20:40 00:21 Temperature 98.2 F 98.2 F Pulse Rate 91 H 94 H 71 Respiratory 20 20 16 Rate Blood Pressure 142/85 142/85 Blood Pressure 156/89 [Right] O2 Sat by Pulse 98 98 97 Oximetry 09/10/17 09/10/17 09/10/17 00:22 00:55 02:05 Temperature Pulse Rate 64 58 L Respiratory 98 H 16 Rate Blood Pressure Blood Pressure 149/65 133/72 [Right] O2 Sat by Pulse 97 98 Oximetry ED Medical Decision Making - Lab Data Result diagrams: 09/09/17 20:56 09/09/17 20:56 - Medical Decision Making The patient was seen and examined by myself. The patient is placed on a playground monitor and continuous pulse ox. On initial evaluation, the patient was found to be in no distress. EKG was negative for findings suggestive of acute cardiac infarct. Labs and imaging are obtained. Chest x-ray is negative for pneumothorax, focal consolidation, pulmonary vascular congestion, pleural effusion, or other obvious acute cardiopulmonary disease process. Lab results revealed low sodium and chloride levels, and otherwise were non- concerning including levels of troponin, WBC, hemoglobin, hematocrit, renal function. The patient was reevaluated and reported that their symptoms were markedly improved. The patient is given 1 L normal saline fluid bolus for treatment of dehydration and low electrolytes. As the patient has a KARLA risk score less than 2, and a well's score less than 2, the patient is at low risk of ACS or pulmonary emboli etiology of their symptoms. The patient is stable for discharge with outpatient follow-up. The patient is given follow-up and return instructions. The patient expressed understanding and agreed with the plan. The patient is discharged in stable condition. Critical care attestation.: If time is entered above; I have spent that time in minutes in the direct care of this critically ill patient, excluding procedure time. ED Disposition Clinical Impression: Acute chest pain, Dehydration, Acute hyponatremia Disposition: DC-01 TO HOME OR SELFCARE Is pt being admited?: No Does the pt Need Aspirin: No Condition: Stable Instructions: Chest Pain (ED), Peptic Ulcer (ED), Gastritis (ED) Referrals: SUNITA NAVARRETE MD [Staff Physician] - 3-5 Days [facility] [Provider Group] - 3-5 Days Time of Disposition: 02:07
== END 2017-09-10 02:22 | disposition home or self-care (01) ==
LOC: ED 19:51
DX: E87.1 Hypo-osmolality and hyponatremia (principal); E86.0 Dehydration; R07.89 Other chest pain; I10 Essential (primary) hypertension; E11.9 Type 2 diabetes mellitus without complications; K21.9 Gastro-esophageal reflux disease without esophagitis; E78.00 Pure hypercholesterolemia, unspecified; Z88.6 Allergy status to analgesic agent
CPT/HCPCS: 36415; 71046; 80048; 84484; 85025; 85610; 85730; 93005; 93010; 96360; 99284; J7030

== ENCOUNTER 2020-04-21 06:32 | Emergency (ER) | payer OTHER ==
--- NOTE | 2020-04-21 06:45 | Emergency Department Report ---
Peggy Doc - Documentation Documentation: 64-year-old F [place]ian male past medical history of hypertension who PCP is the [facility] presents emergency department complaining of acute on chronic chest pain which is been going on for the last 3 to 4 weeks associated with what appears to be palpitations and substernal pressure of unknown etiology but he thinks it may be linked to the flu shot which he obtained at the time of the initial onset. He has been seen by his physician multiple times most recently this past Sunday states they ran a a another battery of testing were unsuccessful with finding the cause of his symptoms. Had another episode today in the morning with no provocative factors noted and seeks reevaluation with emergency department today This initial assessment/diagnostic orders/clinical plan/treatment(s) is/are subject to change based on patients health status, clinical progression and re- assessment by fellow clinical providers in the ED. Further treatment and workup at subsequent clinical providers discretion. Patient/guardian urged not to elope from the ED as their condition may be serious if not clinically assessed and managed. Initial orders include: EKG chest x-ray and labs
--- NOTE | 2020-04-21 07:06 | Emergency Department Report ---
ED General Adult HPI - General Chief complaint: Chest Pain Stated complaint: CHEST PAIN Time Seen by Provider: 04/21/20 07:05 Source: patient Mode of arrival: Ambulatory Limitations: No Limitations - History of Present Illness Initial comments: Patient is a 64-year-old male who presents to emergency department for evaluation of hypertension and tachycardia noted at home during routine a.m. blood pressure check. Patient denies any symptoms prior to checking, denies chest pain, denies palpitations, denies fever, denies nausea vomiting diarrhea. Patient was evaluated at [facility] within the past several days for similar episode and ultimately discharged. - Related Data Home Medications Medication Instructions Recorded Confirmed Last Taken Losartan [Cozaar] 50 mg PO QDAY 05/04/15 03/06/17 03/05/17 yes Garlic 1,000 mg PO DAILY 03/06/17 03/06/17 03/05/17 Multivitamin [Multiple Vitamins] 1 each PO DAILY 03/06/17 03/06/17 03/05/17 Rubicon-3 Fatty Acids/Fish Oil [Fish 1 each PO DAILY 03/06/17 03/06/17 03/05/17 Oil] Previous Rx's Medication Instructions Recorded Last Taken Type Cyclobenzaprine HCl [Flexeril 5 MG 5 mg PO Q8HR PRN #12 tab 09/10/17 Unknown Rx TAB] Famotidine [Pepcid] 20 mg PO BID #30 tablet 09/10/17 Unknown Rx Omeprazole Magnesium [PriLOSEC Otc] 20 mg PO QDAY #14 tablet. 09/10/17 Unknown Rx Allergies Allergy/AdvReac Type Severity Reaction Status Date / Time codeine Allergy Unknown Verified 05/04/15 00:32 ED Review of Systems ROS: Stated complaint: CHEST PAIN Other details as noted in HPI Comment: All other systems reviewed and negative ED Past Medical Hx - Past Medical History Previous Medical History?: Yes Hx Hypertension: Yes Hx Congestive Heart Failure: No Hx Diabetes: No Hx GERD: Yes Hx Kidney Stones: Yes Hx Asthma: No Hx COPD: No Additional medical history: High Cholesterol - Surgical History Past Surgical History?: Yes Additional Surgical History: Kidney stones - Social History Smoking Status: Never Smoker Substance Use Type: None - Medications Home Medications: Home Medications Medication Instructions Recorded Confirmed Last Taken Type Losartan [Cozaar] 50 mg PO QDAY 05/04/15 03/06/17 03/05/17 History yes Garlic 1,000 mg PO DAILY 03/06/17 03/06/17 03/05/17 History Multivitamin [Multiple Vitamins] 1 each PO DAILY 03/06/17 03/06/17 03/05/17 History Rubicon-3 Fatty Acids/Fish Oil [Fish 1 each PO DAILY 03/06/17 03/06/17 03/05/17 History Oil] Cyclobenzaprine HCl [Flexeril 5 MG 5 mg PO Q8HR PRN #12 tab 09/10/17 Unknown Rx TAB] Famotidine [Pepcid] 20 mg PO BID #30 tablet 09/10/17 Unknown Rx Omeprazole Magnesium [PriLOSEC Otc] 20 mg PO QDAY #14 tablet. 09/10/17 Unknown Rx ED Physical Exam - General Limitations: No Limitations General appearance: alert, in no apparent distress - Head Head exam: Present: atraumatic, normocephalic - Eye Eye exam: Present: normal appearance - ENT ENT exam: Present: mucous membranes moist - Neck Neck exam: Present: normal inspection - Respiratory Respiratory exam: Present: normal lung sounds bilaterally. Absent: respiratory distress - Cardiovascular Cardiovascular Exam: Present: regular rate, normal rhythm - GI/Abdominal GI/Abdominal exam: Present: soft, normal bowel sounds - Rectal Rectal exam: Present: deferred - Extremities Exam Extremities exam: Present: normal inspection - Back Exam Back exam: Present: normal inspection - Neurological Exam Neurological exam: Present: alert, oriented X3 - Psychiatric Psychiatric exam: Present: normal affect, normal mood - Skin Skin exam: Present: warm, dry, intact, normal color. Absent: rash ED Course Vital Signs 04/21/20 04/21/20 04/21/20 06:35 08:10 08:22 Temperature 97.6 F Pulse Rate 102 H 67 Respiratory 18 18 15 Rate Blood Pressure 184/100 O2 Sat by Pulse 99 100 Oximetry 04/21/20 04/21/20 04/21/20 08:31 08:45 09:00 Temperature Pulse Rate 73 65 Respiratory 13 22 Rate Blood Pressure 133/80 133/80 133/80 O2 Sat by Pulse 100 99 81 L Oximetry 04/21/20 04/21/20 04/21/20 09:15 09:31 09:45 Temperature Pulse Rate 64 65 67 Respiratory 13 19 19 Rate Blood Pressure 133/80 133/80 133/80 O2 Sat by Pulse 100 100 100 Oximetry 04/21/20 04/21/20 10:03 10:15 Temperature Pulse Rate 72 Respiratory 15 Rate Blood Pressure 133/80 133/80 O2 Sat by Pulse 92 99 Oximetry - Reevaluation(s) Reevaluation #1: 04/21/20 12:16 Patient reevaluated and remains in no acute distress. States he is asymptomatic. Blood pressure 123/76, pulse 72 normal sinus on monitor. Patient again expresses concern about fluctuations in blood pressure, is advised to follow-up with his primary care physician to discuss possible medication change, also being reassured that fluctuations in blood pressure are normal. Patient denies chest pain, denies headache, denies localized weakness, neuro exam remains nonfocal, patient ambulatory with steady gait. ED Medical Decision Making - Lab Data Result diagrams: 04/21/20 07:32 04/21/20 07:32 Lab Results 04/21/20 04/21/20 04/21/20 Range/Units 07:32 07:32 07:32 WBC 2.8 L (4.5-11.0) K/mm3 RBC 5.76 H (3.65-5.03) M/mm3 Hgb 13.5 (11.8-15.2) gm/dl Hct 41.5 (35.5-45.6) % MCV 72 L (84-94) fl MCH 24 L (28-32) pg MCHC 33 (32-34) % RDW 14.8 (13.2-15.2) % Plt Count 174 (140-440) K/mm3 Lymph % (Auto) 34.1 (13.4-35.0) % [place] % (Auto) 12.6 H (0.0-7.3) % Eos % (Auto) 3.7 (0.0-4.3) % Baso % (Auto) 1.0 (0.0-1.8) % Lymph # (Auto) 1.0 L (1.2-5.4) K/mm3 [place] # (Auto) 0.4 (0.0-0.8) K/mm3 Eos # (Auto) 0.1 (0.0-0.4) K/mm3 Baso # (Auto) 0.0 (0.0-0.1) K/mm3 Seg Neutrophils % 48.6 (40.0-70.0) % Seg Neutrophils # 1.4 L (1.8-7.7) K/mm3 D-Dimer 510.39 H (0-234) ng/mlDDU Sodium 137 (137-145) mmol/L Potassium 4.5 (3.6-5.0) mmol/L Chloride 101.9 (98-107) mmol/L Carbon Dioxide 28 (22-30) mmol/L Anion Gap 12 mmol/L BUN 15 (9-20) mg/dL Creatinine 1.0 (0.8-1.3) mg/dL Estimated GFR > 60 ml/min BUN/Creatinine Ratio 15 % Glucose 101 H (75-100) mg/dL Calcium 8.7 (8.4-10.2) mg/dL Total Bilirubin 0.40 (0.1-1.2) mg/dL AST 21 (5-40) units/L ALT 26 (7-56) units/L Alkaline Phosphatase 71 (35-129) units/L Troponin T < 0.010 (0.00-0.029) ng/mL Total Protein 7.5 (6.3-8.2) g/dL Albumin 4.4 (3.9-5) g/dL Albumin/Globulin Ratio 1.4 % Lipase 34 (13-60) units/L 04/21/ Range/Units 10:47 WBC (4.5-11.0) K/mm3 RBC (3.65-5.03) M/mm3 Hgb (11.8-15.2) gm/dl Hct (35.5-45.6) % MCV (84-94) fl MCH (28-32) pg MCHC (32-34) % RDW (13.2-15.2) % Plt Count (140-440) K/mm3 Lymph % (Auto) (13.4-35.0) % [place] % (Auto) (0.0-7.3) % Eos % (Auto) (0.0-4.3) % Baso % (Auto) (0.0-1.8) % Lymph # (Auto) (1.2-5.4) K/mm3 [place] # (Auto) (0.0-0.8) K/mm3 Eos # (Auto) (0.0-0.4) K/mm3 Baso # (Auto) (0.0-0.1) K/mm3 Seg Neutrophils % (40.0-70.0) % Seg Neutrophils # (1.8-7.7) K/mm3 D-Dimer (0-234) ng/mlDDU Sodium (137-145) mmol/L Potassium (3.6-5.0) mmol/L Chloride (98-107) mmol/L Carbon Dioxide (22-30) mmol/L Anion Gap mmol/L BUN (9-20) mg/dL Creatinine (0.8-1.3) mg/dL Estimated GFR ml/min BUN/Creatinine Ratio % Glucose (75-100) mg/dL Calcium (8.4-10.2) mg/dL Total Bilirubin (0.1-1.2) mg/dL AST (5-40) units/L ALT (7-56) units/L Alkaline Phosphatase (35-129) units/L Troponin T < 0.010 (0.00-0.029) ng/mL Total Protein (6.3-8.2) g/dL Albumin (3.9-5) g/dL Albumin/Globulin Ratio % Lipase (13-60) units/L Vital Signs 04/21/20 04/21/20 04/21/20 06:35 08:10 08:22 Temperature 97.6 F Pulse Rate 102 H 67 Respiratory 18 18 15 Rate Blood Pressure 184/100 O2 Sat by Pulse 99 100 Oximetry 04/21/20 04/21/20 04/21/20 08:31 08:45 09:00 Temperature Pulse Rate 73 65 Respiratory 13 22 Rate Blood Pressure 133/80 133/80 133/80 O2 Sat by Pulse 100 99 81 L Oximetry 04/21/20 04/21/20 04/21/20 09:15 09:31 09:45 Temperature Pulse Rate 64 65 67 Respiratory 13 19 19 Rate Blood Pressure 133/80 133/80 133/80 O2 Sat by Pulse 100 100 100 Oximetry 04/21/20 04/21/20 10:03 10:15 Temperature Pulse Rate 72 Respiratory 15 Rate Blood Pressure 133/80 133/80 O2 Sat by Pulse 92 99 Oximetry - EKG Data -: EKG Interpreted by Me (Sinus rhythm at 86, no ST-T changes, normal QRS as interpreted by me) - Radiology Data Radiology results: report reviewed CHEST 2 VIEWS INDICATION: Chest Pain. COMPARISON: 09/09/2017 FINDINGS: Support devices: None. Heart: Within normal limits. Lungs/pleura: No acute air space or interstitial disease. No pneumothorax. Additional findings: None. IMPRESSION: No acute findings. Signer Name: Fredi Alcaraz Jr, MD Signed: 04/21/2020 6:44 AM Workstation Name: [id number] CTA CHEST WITH CONTRAST INDICATION : Chest pain. TECHNIQUE: Axial imaging performed through the chest, with contrast bolus timing set to maximize opacification of the pulmonary arteries. Sagittal and coronal reformatted images. 3-plane MIP reformatted images were obtained. All CT scans at this location are performed using CT dose reduction for ALARA by means of automated exposure control. 100 mL of intravenous contrast administered. COMPARISON: FINDINGS: Bolus: Contrast bolus timing is adequate. PTE: No filling defect is present to suggest PTE. Mediastinum: Heart and great vessels appear normal. No pathologic mediastinal adenopathy. Lungs: Lungs are clear. Bones: Degenerative changes in the spine with nothing acute. Upper abdomen: Limited imaging of the upper abdomen shows nothing acute. IMPRESSION: Negative for PTE. Clear lungs. Signer Name: Fredi Alcaraz Jr, MD Signed: 04/21/2020 10:55 AM Workstation Name: [id number] Critical care attestation.: If time is entered above; I have spent that time in minutes in the direct care of this critically ill patient, excluding procedure time. ED Disposition Clinical Impression: Palpitations, Hypertensive disorder Disposition: DC-01 TO HOME OR SELFCARE Is pt being admited?: No Condition: Stable Instructions: Hypertension (ED) Referrals: PRIMARY CARE, [Primary Care Provider] - 3-5 Days
--- NOTE | 2020-04-21 07:48 | XRay Report ---
CHEST 2 VIEWS INDICATION: Chest Pain. COMPARISON: 09/09/2017 FINDINGS: Support devices: None. Heart: Within normal limits. Lungs/pleura: No acute air space or interstitial disease. No pneumothorax. Additional findings: None. IMPRESSION: No acute findings. Signer Name: Fredi Alcaraz Jr, MD Signed: 04/21/2020 7:44 AM Workstation Name: [id number]
[2020-04-21 08:30] LABS: Eosinophils # (Auto) 0.1 K/mm3 (0.0-0.4); Eosinophils % (Auto) 3.7 % (0.0-4.3); Hematocrit 41.5 % (35.5-45.6); Hemoglobin 13.5 gm/dl (11.8-15.2); Lymphocytes % (Auto) 34.1 % (13.4-35.0); Mean Corpuscular HGB Conc 33 % (32-34); Mean Corpuscular Volume 72 fl (84-94); Monocytes # (Auto) 0.4 K/mm3 (0.0-0.8); Monocytes % (Auto) 12.6 % (0.0-7.3); Platelet Count 174 K/mm3 (140-440); Red Blood Count 5.76 M/mm3 (3.65-5.03); Red Cell Distribution Width 14.8 % (13.2-15.2)
[2020-04-21 08:55] LABS: Alanine Aminotransferase 26 units/L (7-56); Albumin 4.4 g/dL (3.9-5); BUN/Creatinine Ratio 15; Blood Urea Nitrogen 15 mg/dL (9-20); Calcium 8.7 mg/dL (8.4-10.2); Hemolysis Index 5
--- NOTE | 2020-04-21 11:59 | Cat Scan Report ---
CTA CHEST WITH CONTRAST INDICATION : Chest pain. TECHNIQUE: Axial imaging performed through the chest, with contrast bolus timing set to maximize opa cification of the pulmonary arteries. Sagittal and coronal reformatted images. 3-plane MIP reformatte d images were obtained. All CT scans at this location are performed using CT dose reduction for ALAR A by means of automated exposure control. 100 mL of intravenous contrast administered. COMPARISON: FINDINGS: Bolus: Contrast bolus timing is adequate. PTE: No filling defect is present to suggest PTE. Mediastinum: Heart and great vessels appear normal. No pathologic mediastinal adenopathy. Lungs: Lungs are clear. Bones: Degenerative changes in the spine with nothing acute. Upper abdomen: Limited imaging of the upper abdomen shows nothing acute. IMPRESSION: Negative for PTE. Clear lungs. Signer Name: Fredi Alcaraz Jr, MD Signed: 04/21/2020 11:55 AM Workstation Name: [id number]
[2020-04-21 12:38] VITALS: BP 127/82
== END 2020-04-21 12:38 | disposition home or self-care (01) ==
LOC: ED 06:32
DX: I10 Essential (primary) hypertension (principal); R00.2 Palpitations; K21.9 Gastro-esophageal reflux disease without esophagitis; E78.00 Pure hypercholesterolemia, unspecified; Z88.6 Allergy status to analgesic agent; Z79.899 Other long term (current) drug therapy; Z87.442 Personal history of urinary calculi
CPT/HCPCS: 36415; 71046; 71275; 80053; 83690; 84484; 85025; 85379; 93005; 99284; Q9967